=== PATIENT | male | born 1940 | race Caucasian/White ===

== ENCOUNTER → 2022-05-06 | Outpatient (CLI) | payer MEDICARE ==
[~2022-05-06] MED LIST: ALBU90OI6 INH; ASCO500 PO; CHOL10002 PO; CYAN1000 PO; MULVITMIND PO; TIOT18 INH
[2022-05-06 11:09] LABS: Appearance, Urine Clear (Clear); Bilirubin, Urine Neg (Neg); Blood, Urine 3+ (Neg); Color, Urine Yellow (P-Yellow); Glucose Qualitative, Urine Neg (Neg); Ketones, Urine Neg (Neg); Leukocyte Esterase, Urine Neg (Neg); Nitrite, Urine Neg (Neg); Protein, Urine 2+ (Neg); Specific Gravity, Urine 1.015 (1.003-1.022); Urobilinogen, Urine NORM (Normal)
[2022-05-06 11:50] LABS: Bacteria Few /hpf; Mucus Light (0-Heavy); Squamous Epithelial Cells Few /hpf (Few); White Blood Cells, Urine 0-2 /hpf (0-5)
== END | disposition home or self-care (01) ==
LOC: LAB SHORT 10:00 → LAB 10:00
PROVIDERS: Radiology Therapeutic Radiology
DX: C67.8 Malignant neoplasm of overlapping sites of bladder (principal)
CPT/HCPCS: 81001; 87077; 87086; 87186

== ENCOUNTER → 2022-05-09 | Outpatient (CLI) | payer MEDICARE ==
[2022-05-09 12:27] LABS: Hematocrit 31.7 % (37.0-53.0); Hemoglobin 10.4 g/dL (13.5-17.5); Mean Corpuscular HGB Conc 32.8 g/dL (31.5-36.5); Mean Corpuscular Volume 85 fL (80-100); Mean Platelet Volume 10.9 fL (9.1-12.4); RDW Coefficient Variation 16.3 % (11.7-14.2); RDW Standard Deviation 47.8 fL (35.1-46.3); Red Blood Cell Count 3.72 M/mm3 (4.30-5.90); White Blood Cell Count 6.09 K/mm3 (4.00-11.30)
[2022-05-09 12:46] LABS: Albumin, Blood 3.7 g/dL (3.4-5.0); Bilirubin, Total 0.4 mg/dL (0.1-1.0); Bun/Creatinine Ratio 11.3 (12.0-20.0); Calcium, Blood 8.9 mg/dL (8.5-10.1); Creatinine, Blood 0.97 mg/dL (0.60-1.20); Globulin, Blood 3.7 g/dL (2.2-4.0); Total Protein, Blood 7.4 g/dL (6.4-8.2)
[2022-05-09 14:00] LABS: Platelet Count 35 K/mm3 (150-400)
[2022-05-09 14:12] LABS: BAND PERCENT MAN 23 % (0-8); BASOPHILS PERCENT MAN 0 % (0-2); EOSINOPHILS PERCENT MAN 0 % (0-6); LYMPHOCYTES ABSOLUTE MAN 0.54 K/mm3 (0.84-5.20); LYMPHOCYTES PERCENT MAN 9 % (21-46); MONOCYTES ABSOLUTE MAN 0.12 K/mm3 (0.16-1.47); MONOCYTES PERCENT MAN 2 % (4-13); MYELOCYTE ABSOLUTE MAN 0.06 K/mm3 (0.00-0.00); MYELOCYTE PERCENT MAN 1 % (0-0); NEUTROPHILS ABSOLUTE MAN 5.35 K/mm3 (1.96-9.15); SEG NEUTROPHILS PERCENT MAN 65 % (41-73); TOTAL CELLS COUNTED 100
== END | disposition home or self-care (01) ==
LOC: LAB SHORT 12:22 → LAB 12:22
PROVIDERS: Physician Assistant
DX: C34.90 Malignant neoplasm of unspecified part of unspecified bronchus or lung (principal)
CPT/HCPCS: 80053; 84484; 85025

== ENCOUNTER → 2022-11-04 | Outpatient (CLI) | payer MEDICARE, OTHER ==
[2022-11-09 13:12] LABS: ATYPICAL PANCA <1:20 titer (Neg:<1:20); CYTOPLASMIC (C-ANCA) <1:20 titer (Neg:<1:20); PERINUCLEAR (P-ANCA) <1:20 titer (Neg:<1:20)
== END | disposition home or self-care (01) ==
LOC: LAB SHORT 15:15 → LAB 15:15
PROVIDERS: Family Medicine
DX: G62.9 Polyneuropathy, unspecified (principal); E53.8 Deficiency of other specified B group vitamins; R53.83 Other fatigue
CPT/HCPCS: 82607; 82746; 84155; 84443; 85651; 86037; 86038

== ENCOUNTER 2023-05-09 20:11 | Inpatient (IN) | payer MEDICARE, OTHER ==
[~2023-05-09] VITALS: Ht 182.9 cm; Wt 96.0 kg
[2023-05-09 21:40] LABS: BASOPHILS ABSOLUTE AUTO 0.05 K/mm3 (0.00-0.23); BASOPHILS PERCENT AUTO 1 % (0-2); EOSINOPHILS ABSOLUTE AUTO 0.31 K/mm3 (0.00-0.68); EOSINOPHILS PERCENT AUTO 5 % (0-6); Hematocrit 40.8 % (37.0-53.0); Hemoglobin 13.3 g/dL (13.5-17.5); IMMATURE GRAN ABSOLUTE AUTO 0.03 K/mm3 (0.00-0.10); IMMATURE GRAN PERCENT AUTO 0 % (0-1); LYMPHOCYTES ABSOLUTE AUTO 0.98 K/mm3 (0.84-5.20); LYMPHOCYTES PERCENT AUTO 14 % (21-46); MONOCYTES PERCENT AUTO 9 % (4-13); Mean Corpuscular HGB 27.1 pg (26.0-34.0); Mean Corpuscular HGB Conc 32.6 g/dL (31.5-36.5); Mean Corpuscular Volume 83 fL (80-100); Mean Platelet Volume 10.3 fL (9.1-12.4); NEUTROPHILS ABSOLUTE AUTO 4.86 K/mm3 (1.96-9.15); NEUTROPHILS PERCENT AUTO 71 % (41-73); Platelet Count 148 K/mm3 (150-400); RDW Coefficient Variation 13.5 % (11.7-14.2); RDW Standard Deviation 40.9 fL (35.1-46.3); White Blood Cell Count 6.83 K/mm3 (4.00-11.30)
[2023-05-09] MEDS ORDERED: FUROSEMIDE20 MG PO (22:03)
[2023-05-09] MEDS ORDERED: TAMSULOSIN HCL0.4 M1 PO (22:03)
[2023-05-09] MEDS ORDERED: LOSA50 PO (22:04)
[2023-05-09 22:57] LABS: Albumin, Blood 3.8 g/dL (3.4-5.0); Albumin/Globulin Ratio 0.9 (0.8-1.8); Bilirubin, Total 0.4 mg/dL (0.1-1.0); Bun/Creatinine Ratio 7.5 (12.0-20.0); Creatinine, Blood 1.06 mg/dL (0.60-1.20); Globulin, Blood 4.3 g/dL (2.2-4.0); Potassium, Blood 2.9 mmol/L (3.5-5.5); Total Protein, Blood 8.1 g/dL (6.4-8.2)
[2023-05-10 06:09] VITALS: BP 128/79
--- NOTE | 2023-05-10 06:33 | NUR ---
ADMIT NOTE 82 YR OLD MALE ADMITTED TO FLOOR FROM THE ED WITH DX OF HYPERCALCEMIA. ALERT AND ORIENTED X 4. O2 AT 2L/NC. DIABETIC. HX OF LUNG CANCER, ED RN REPORTED RECENT CHEMO AND RADIATION TREATMENTS. ORIENTED TO USE OF CALL LIGHT. CALL LIGHT IN REACH.
[2023-05-10 07:09] LABS: Bun/Creatinine Ratio 6.5 (12.0-20.0); Calcium, Blood 13.1 mg/dL (8.5-10.1); Creatinine, Blood 1.07 mg/dL (0.60-1.20); Potassium, Blood 3.1 mmol/L (3.5-5.5)
[2023-05-10] MEDS ORDERED: ALBU2.5V5 INH (13:05)
[2023-05-10] MEDS ORDERED: ROSU10TA PO (13:07)
[2023-05-10] MEDS ORDERED: KLOR-CON 1010 ME9 PO (13:08)
[2023-05-10] MEDS ORDERED: BRIMONIDINE TART5 M2 BOTHEYES (13:09)
[2023-05-10] MEDS ORDERED: METOPROLOL SUCC25 MG PO (13:10)
[2023-05-10 15:14] VITALS: BP 136/87
--- NOTE | 2023-05-10 16:46 | NUR ---
SHIFT SUMMARY- PT IS ALERT, PLESANT AND COOPERATIVE. HE SLEPT INTERMITENTLY THROUGHOUT THIS SHIFT. HE IS RECIEVING PRN NAUSEA MEDICATION. HE IS RECIEVING IV FLUIDS AND IS BEING TREATED TO ALTERED LABS. AT BEDSIDE THIS SHIFT. HIS BED IS IN THE LOW POSITON AND CALL LIGHT IS WITIN REACH.
[2023-05-10 19:44] VITALS: BP 128/75
[2023-05-11 02:08] VITALS: BP 137/75
--- NOTE | 2023-05-11 05:06 | NUR ---
END OF SHIFT SUMMARY PT A&O x4, PT LETHARGIC, BUT EASY TO AROUSE. VSS, AFEBRILE. PT DENIED CHEST PAIN/TIGHTNESS/PRESSURE, NO SOB. PT ON 1L VIA NC, OXYGEN SAT 92%. PT RECEIVED HIS LAST DOSE OF CALCITONIN IM INJECTION. CBG AC WAS 157. PT C/O NAUSEA, PRN IV ZOFRAN GIVEN AND EFFECTIVE. PT STOOD UP ONCE WITHOUT ASSISTANCE, BED ALARM ON FOR SAFETY PT CAN BE IMPULSIVE. FREQUENT SAFETY CHECKS COMPLETED. CALL LIGHT WITHIN REACH, WCTM.
[2023-05-11 06:55] LABS: BASOPHILS ABSOLUTE AUTO 0.04 K/mm3 (0.00-0.23); BASOPHILS PERCENT AUTO 1 % (0-2); EOSINOPHILS ABSOLUTE AUTO 0.05 K/mm3 (0.00-0.68); EOSINOPHILS PERCENT AUTO 1 % (0-6); Hematocrit 36.5 % (37.0-53.0); Hemoglobin 11.7 g/dL (13.5-17.5); IMMATURE GRAN ABSOLUTE AUTO 0.01 K/mm3 (0.00-0.10); IMMATURE GRAN PERCENT AUTO 0 % (0-1); LYMPHOCYTES ABSOLUTE AUTO 0.48 K/mm3 (0.84-5.20); LYMPHOCYTES PERCENT AUTO 10 % (21-46); MONOCYTES ABSOLUTE AUTO 0.34 K/mm3 (0.16-1.47); MONOCYTES PERCENT AUTO 7 % (4-13); Mean Corpuscular HGB 27.3 pg (26.0-34.0); Mean Corpuscular HGB Conc 32.1 g/dL (31.5-36.5); Mean Corpuscular Volume 85 fL (80-100); Mean Platelet Volume 10.8 fL (9.1-12.4); NEUTROPHILS ABSOLUTE AUTO 4.01 K/mm3 (1.96-9.15); NEUTROPHILS PERCENT AUTO 81 % (41-73); Platelet Count 130 K/mm3 (150-400); RDW Coefficient Variation 13.8 % (11.7-14.2); RDW Standard Deviation 43.1 fL (35.1-46.3); Red Blood Cell Count 4.28 M/mm3 (4.30-5.90); White Blood Cell Count 4.93 K/mm3 (4.00-11.30)
[2023-05-11 07:22] VITALS: BP 146/77
[2023-05-11 07:30] LABS: Calcium, Blood 11.6 mg/dL (8.5-10.1); Creatinine, Blood 0.84 mg/dL (0.60-1.20); Potassium, Blood 3.1 mmol/L (3.5-5.5)
[2023-05-11 07:54] LABS: BASOPHILS PERCENT MAN 0 % (0-2); EOSINOPHILS ABSOLUTE MAN 0.04 K/mm3 (0.00-0.68); EOSINOPHILS PERCENT MAN 1 % (0-6); LYMPHOCYTES ABSOLUTE MAN 0.09 K/mm3 (0.84-5.20); LYMPHOCYTES PERCENT MAN 2 % (21-46); MONOCYTES ABSOLUTE MAN 0.24 K/mm3 (0.16-1.47); MONOCYTES PERCENT MAN 5 % (4-13); NEUTROPHILS ABSOLUTE MAN 4.53 K/mm3 (1.96-9.15); SEG NEUTROPHILS PERCENT MAN 92 % (41-73); TOTAL CELLS COUNTED 100
[2023-05-11 15:31] VITALS: BP 135/73
--- NOTE | 2023-05-11 17:45 | NUR ---
SHIFT SUMMARY- PT IS A/O, PLESANT AND COOPERATIVE. HIS APPETITE IS POOR, TREATED FOR NAUSEA NEEDED. IS AT BEDSIDE. STILL BEING TREATED FOR ELECTROLYTE IMBALANCE. DR. VERDE SAW PT THIS EVENING AND CHANGED PAIN MECICATION TO ELIMINATE TYLENOL. HE WORKED WITH PT THIS SHIFT AND TOLORATED WELL. HE WAS UP TO THE CHAIR THIS SHIFT. HIS BED IS IN THE LOW POSITION AND CALL LIGHT IS WITIN REACH.
[2023-05-11 20:12] VITALS: BP 126/72
[2023-05-12 03:02] VITALS: BP 126/69
[2023-05-12 05:12] LABS: BASOPHILS ABSOLUTE AUTO 0.01 K/mm3 (0.00-0.23); BASOPHILS PERCENT AUTO 0 % (0-2); EOSINOPHILS PERCENT AUTO 0 % (0-6); Hematocrit 36.5 % (37.0-53.0); Hemoglobin 11.5 g/dL (13.5-17.5); IMMATURE GRAN ABSOLUTE AUTO 0.03 K/mm3 (0.00-0.10); IMMATURE GRAN PERCENT AUTO 1 % (0-1); LYMPHOCYTES PERCENT AUTO 7 % (21-46); MONOCYTES ABSOLUTE AUTO 0.05 K/mm3 (0.16-1.47); MONOCYTES PERCENT AUTO 1 % (4-13); Mean Corpuscular HGB 26.9 pg (26.0-34.0); Mean Corpuscular HGB Conc 31.5 g/dL (31.5-36.5); Mean Corpuscular Volume 86 fL (80-100); NEUTROPHILS ABSOLUTE AUTO 5.68 K/mm3 (1.96-9.15); NEUTROPHILS PERCENT AUTO 92 % (41-73); Platelet Count 136 K/mm3 (150-400); RDW Coefficient Variation 14.2 % (11.7-14.2); RDW Standard Deviation 43.9 fL (35.1-46.3); Red Blood Cell Count 4.27 M/mm3 (4.30-5.90); White Blood Cell Count 6.17 K/mm3 (4.00-11.30)
[2023-05-12 05:35] LABS: Albumin, Blood 3.1 g/dL (3.4-5.0); Albumin/Globulin Ratio 0.8 (0.8-1.8); Bilirubin, Total 0.4 mg/dL (0.1-1.0); Bun/Creatinine Ratio 11.1 (12.0-20.0); Calcium, Blood 11.4 mg/dL (8.5-10.1); Creatinine, Blood 0.99 mg/dL (0.60-1.20); Globulin, Blood 3.9 g/dL (2.2-4.0); Magnesium, Blood 1.8 mg/dL (1.6-2.4); Potassium, Blood 3.6 mmol/L (3.5-5.5)
[2023-05-12 06:33] LABS: BASOPHILS PERCENT MAN 0 % (0-2); EOSINOPHILS PERCENT MAN 0 % (0-6); LYMPHOCYTES ABSOLUTE MAN 0.24 K/mm3 (0.84-5.20); LYMPHOCYTES PERCENT MAN 4 % (21-46); MONOCYTES PERCENT MAN 0 % (4-13); NEUTROPHILS ABSOLUTE MAN 5.92 K/mm3 (1.96-9.15); SEG NEUTROPHILS PERCENT MAN 96 % (41-73); TOTAL CELLS COUNTED 100
[2023-05-12 07:45] VITALS: BP 116/60
[2023-05-12 14:53] VITALS: BP 134/74
--- NOTE | 2023-05-12 18:18 | NUR ---
SHIFT SUMMARY: PATIENT A/OX4. APPEARS TO BE WITHDRAWN AND HAS FLAT AFFECT. PATIENT DENIES CP/PRESSURE, N/V, SOB, GENERALIZED PAIN AND DIZZINESS. 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 PT RECOMMENDED HH SERVICES. PATIENT ATE 50% FOR BREAKFAST, DECLINE LUNCH AND ATE COUPLE BITES FOR DINNER. PATIENT IS CONTINENCE OF BLADDER AND USES URINAL IN BED INDEPENDENTLY. PATIENT RECEIVED IV ABX AND SCHEDULED MEDS PER EMAR. ON 2L O2 AT BASELINE. LUNGS COARSE AND WHEEZY T/O TO AUSCULTATION. VITAL SIGNS REVIEWED. PIV TO L WRIST INFUSING NS AT 50 MLS/HR. BED ALARM ON FOR SAFETY. CALL LIGHT IN REACH.
--- NOTE | 2023-05-12 18:33 | NUR ---
ADDITIONAL NOTE: PATIENT ON TELE, SR HR IN THE 60'S BPM c OCCASIONAL BBB PER COMMERCIAL HVAC TECHNICIAN.
[2023-05-12 19:49] VITALS: BP 111/95
[2023-05-12 21:03] VITALS: BP 119/57
[2023-05-13 01:51] VITALS: BP 127/72
--- NOTE | 2023-05-13 04:46 | NUR ---
SHIFT SUMMARY PT A&O, CALM AND COOPERATIVE WITH CARE. PT APPETITE IS POOR, MEDICATED PER EMAR FOR NAUSEA. ABX AND SOLUMEDROL GIVEN INDICATED. PT CONTINENT OF URINE AND USES URINAL WITH ASSISTANCE. 2 L O2 VIA NC. TELEMETRY: SR 1ST DEGREE @ 55. DENIES CP OR PRESSURE. BED KEPT IN THE LOWEST POSITION FOR PT SAFETY. CALL LIGHT WITHIN REACH.
[2023-05-13 05:55] LABS: BASOPHILS ABSOLUTE AUTO 0.01 K/mm3 (0.00-0.23); BASOPHILS PERCENT AUTO 0 % (0-2); EOSINOPHILS PERCENT AUTO 0 % (0-6); Hematocrit 34.9 % (37.0-53.0); Hemoglobin 11.3 g/dL (13.5-17.5); IMMATURE GRAN ABSOLUTE AUTO 0.04 K/mm3 (0.00-0.10); IMMATURE GRAN PERCENT AUTO 0 % (0-1); LYMPHOCYTES ABSOLUTE AUTO 0.51 K/mm3 (0.84-5.20); LYMPHOCYTES PERCENT AUTO 4 % (21-46); MONOCYTES ABSOLUTE AUTO 0.27 K/mm3 (0.16-1.47); MONOCYTES PERCENT AUTO 2 % (4-13); Mean Corpuscular HGB Conc 32.4 g/dL (31.5-36.5); Mean Corpuscular Volume 83 fL (80-100); Mean Platelet Volume 10.3 fL (9.1-12.4); NEUTROPHILS ABSOLUTE AUTO 11.48 K/mm3 (1.96-9.15); NEUTROPHILS PERCENT AUTO 93 % (41-73); Platelet Count 151 K/mm3 (150-400); RDW Coefficient Variation 14.3 % (11.7-14.2); RDW Standard Deviation 43.3 fL (35.1-46.3); Red Blood Cell Count 4.19 M/mm3 (4.30-5.90); White Blood Cell Count 12.31 K/mm3 (4.00-11.30)
[2023-05-13 06:33] LABS: Albumin, Blood 3.1 g/dL (3.4-5.0); Albumin/Globulin Ratio 0.9 (0.8-1.8); Bilirubin, Total 0.4 mg/dL (0.1-1.0); Bun/Creatinine Ratio 19.5 (12.0-20.0); Calcium, Blood 11.3 mg/dL (8.5-10.1); Creatinine, Blood 0.98 mg/dL (0.60-1.20); Globulin, Blood 3.6 g/dL (2.2-4.0); Potassium, Blood 3.4 mmol/L (3.5-5.5); Total Protein, Blood 6.7 g/dL (6.4-8.2)
[2023-05-13 08:03] VITALS: BP 123/79
[2023-05-13 16:03] VITALS: BP 132/67
--- NOTE | 2023-05-13 18:18 | NUR ---
SHIFT SUMMARY PT AOX4, SBA TO THE BR. FAMILY AT THE BS ALL SHIFT. MEDICATED FOR PAIN PER THE EMAR. PT'S APPETITE IMPROVING, EATING BETTER TODAY. PT ON TELE, SB DURING HIS SLEEP BUT RECOVERED WELL. STILL ON 2L BUT WEARS IT IN HIS MOUTH. CALL LIGHT WITHIN REACH, BED IN THE LOWEST POSITION. WILL REPORT TO ONCOMING NURSE.
--- NOTE | 2023-05-13 19:08 | NUR ---
Late entry note did not post from 05/11. Long discussion with pt and family. Symptom review getting more headaches. Struggling with food. Reviewed strategies of eating more frquently and strategies of hydration. Pt lives in a trailer home alone most of the week his goes to [place] to work. pt until recently was driving. he has fallen getting out of the camper. serious conversation with them about changing his living situation and not driving. Saw today and review his care . She had to go but feels he is better. Briefly discussed code status and adnvace care planning and poa and arriola.
[2023-05-13 19:11] VITALS: BP 122/73
--- NOTE | 2023-05-14 02:57 | NUR ---
SHIFT SUMMARY PT A&O X4, PLEASANT AND COOPERATIVE WITH CARE. PT IS SBA WITH FFW TO BATHROOM. CURRENTLY ON 2L O2 VIA NC. PT PREFERS TO WEAR IN HIS MOUTH. TELEMETRY: SB W/FIRST DEGREE. ASYMPTOMATIC, DENIES ANY CP/ PRESSURE OR DIZZINESS. NS INFUISING AT 75 ML/HR. AT BEDSIDE AT START OF SHIFT AND STATES PATIENTS APPETITE IS IMPROVING. PT MEDICATED PER EMAR FOR COMPLAINTS OF ABDOMINAL PAIN. BED KEPT IN LOWEST POSITION WITH CALL LIGHT WITHIN REACH. WILL CONTINUE TO MONITOR UNTIL END OF SHIFT.
[2023-05-14 03:08] VITALS: BP 157/78
[2023-05-14 04:31] VITALS: BP 133/75
[2023-05-14 06:24] LABS: BASOPHILS PERCENT AUTO 0 % (0-2); EOSINOPHILS PERCENT AUTO 0 % (0-6); Hematocrit 35.6 % (37.0-53.0); Hemoglobin 11.6 g/dL (13.5-17.5); IMMATURE GRAN ABSOLUTE AUTO 0.07 K/mm3 (0.00-0.10); IMMATURE GRAN PERCENT AUTO 1 % (0-1); LYMPHOCYTES PERCENT AUTO 5 % (21-46); MONOCYTES ABSOLUTE AUTO 0.54 K/mm3 (0.16-1.47); MONOCYTES PERCENT AUTO 5 % (4-13); Mean Corpuscular HGB 27.1 pg (26.0-34.0); Mean Corpuscular HGB Conc 32.6 g/dL (31.5-36.5); Mean Corpuscular Volume 83 fL (80-100); Mean Platelet Volume 10.5 fL (9.1-12.4); NEUTROPHILS ABSOLUTE AUTO 9.97 K/mm3 (1.96-9.15); NEUTROPHILS PERCENT AUTO 89 % (41-73); Platelet Count 160 K/mm3 (150-400); RDW Coefficient Variation 14.5 % (11.7-14.2); RDW Standard Deviation 43.3 fL (35.1-46.3); Red Blood Cell Count 4.28 M/mm3 (4.30-5.90); White Blood Cell Count 11.18 K/mm3 (4.00-11.30)
[2023-05-14 06:43] LABS: Bun/Creatinine Ratio 18.5 (12.0-20.0); Calcium, Blood 10.8 mg/dL (8.5-10.1); Creatinine, Blood 0.92 mg/dL (0.60-1.20); Potassium, Blood 3.2 mmol/L (3.5-5.5)
[2023-05-14 07:39] VITALS: BP 143/60
[2023-05-14 16:49] VITALS: BP 130/82
--- NOTE | 2023-05-14 18:00 | NUR ---
SHIFT SUMMARY PT AOX4, 1 ASSIST WITH THE FWW. THE PT WAS IN PAIN THIS AM, USED THE URINAL AT THE BS. HE WAS MEDICATED FOR PAIN PER THE EMAR. HE TOOK A SHOWER TODAY AND TOLERATED IT WELL. IS AT THE BS THIS EVENING. TELE CALLED AND SAID HE WAS TACHY UP EARLY THIS AFTERNOON BUT HAVE NOT HAD ISSUES SINCE. CALL LIGHT WITHIN REACH, BED IN THE LOWEST POSITION. WILL REPORT TO ONCOMING NURSE.
[2023-05-14 19:20] VITALS: BP 112/55
[2023-05-15 03:21] VITALS: BP 142/72
--- NOTE | 2023-05-15 03:54 | NUR ---
SHIFT SUMMARY PT A&O X4, CALM AND COOPERATIVE WITH CARE. COMPLAINTS OF ABD/EPIGASTRIC PAIN THIS SHIFT-MEDICATED PER EMAR. TELEMETRY: SR/SA @69. DENIES ANY CP OR PRESSURE. PT CURRENTLY ON 2L O2 VIA NC WHICH IS HIS BASELINE. GIVEN MIRALAX THIS SHIFT. AT BEDSIDE WELL INTO THE NIGHT. BED IN LOWEST POSITION WITH CALL LIGHT WITHIN REACH. WILL CONTINUE TO MONITOR.
[2023-05-15 05:43] LABS: BASOPHILS ABSOLUTE AUTO 0.01 K/mm3 (0.00-0.23); BASOPHILS PERCENT AUTO 0 % (0-2); EOSINOPHILS ABSOLUTE AUTO 0.03 K/mm3 (0.00-0.68); EOSINOPHILS PERCENT AUTO 0 % (0-6); Hematocrit 34.1 % (37.0-53.0); Hemoglobin 11.2 g/dL (13.5-17.5); IMMATURE GRAN ABSOLUTE AUTO 0.04 K/mm3 (0.00-0.10); IMMATURE GRAN PERCENT AUTO 1 % (0-1); LYMPHOCYTES ABSOLUTE AUTO 0.62 K/mm3 (0.84-5.20); LYMPHOCYTES PERCENT AUTO 8 % (21-46); MONOCYTES ABSOLUTE AUTO 0.47 K/mm3 (0.16-1.47); MONOCYTES PERCENT AUTO 6 % (4-13); Mean Corpuscular HGB 27.2 pg (26.0-34.0); Mean Corpuscular HGB Conc 32.8 g/dL (31.5-36.5); Mean Corpuscular Volume 83 fL (80-100); NEUTROPHILS ABSOLUTE AUTO 6.69 K/mm3 (1.96-9.15); NEUTROPHILS PERCENT AUTO 85 % (41-73); Platelet Count 139 K/mm3 (150-400); RDW Coefficient Variation 14.4 % (11.7-14.2); RDW Standard Deviation 43.4 fL (35.1-46.3); Red Blood Cell Count 4.12 M/mm3 (4.30-5.90); White Blood Cell Count 7.86 K/mm3 (4.00-11.30)
[2023-05-15 06:39] LABS: Albumin, Blood 2.8 g/dL (3.4-5.0); Anion Gap 4 mmol/L (6-16); Blood Urea Nitrogen 12 mg/dL (8-24); Bun/Creatinine Ratio 14.1 (12.0-20.0); CO2, Blood 28 mmol/L (21-32); Calcium, Blood 10.4 mg/dL (8.5-10.1); Chloride, Blood 108 mmol/L (98-108); Creatinine, Blood 0.85 mg/dL (0.60-1.20); Glomerular Filtration Rate 87 (60-); Glucose, Blood 135 mg/dL (70-99); Phosphorus, Blood 0.8 mg/dL (2.5-4.9); Potassium, Blood 2.9 mmol/L (3.5-5.5); Sodium, Blood 140 mmol/L (136-145)
[2023-05-15 08:03] VITALS: BP 138/70
[2023-05-15 14:39] LABS: Albumin, Blood 2.6 g/dL (3.4-5.0); Anion Gap 4 mmol/L (6-16); Blood Urea Nitrogen 11 mg/dL (8-24); CO2, Blood 29 mmol/L (21-32); Calcium, Blood 9.8 mg/dL (8.5-10.1); Chloride, Blood 105 mmol/L (98-108); Glomerular Filtration Rate 75 (60-); Glucose, Blood 234 mg/dL (70-99); Phosphorus, Blood 2.2 mg/dL (2.5-4.9); Potassium, Blood 3.6 mmol/L (3.5-5.5); Sodium, Blood 138 mmol/L (136-145)
--- NOTE | 2023-05-15 17:49 | NUR ---
SHIFT SUMMARY Pt A&O this shift. Increased weakness noted. Ast needed from bed to standing to urinate. VSS. RLQ abd/back pain managed with IV Toradol and po [place]. SR on monitor. Will upper thigh edema noted. IVF decreased per Dr. Hall. Pain and safety maintained. Will continue to monitor.
[2023-05-15 18:01] VITALS: BP 143/68
[2023-05-15 19:16] VITALS: BP 116/64
[2023-05-16 03:56] VITALS: BP 148/73
--- NOTE | 2023-05-16 05:31 | NUR ---
SHIFT SUMMARY 82 YR M ADMITTED ON 05/10/23 FOR HYPERCALCEMIA. FULL CODE. NO ACUTE CHANGES THIS SHIFT. PT IS STILL HAVING A GREAT DEAL OF PAIN AND BEING GIVEN PAIN MEDS PER EMAR. HE IS A SBA TO STAND AT BEDSIDE AND USE THE URINAL. HE URINATES FREQUENTLY BUT SMALL AMOUNTS AT A TIME (150-250). HE IS A&O X4 AND IS PLEASANT AND COOPERATIVE WITH CARE. HE SLEPT OFF AND ON THROUGHOUT THE NIGHT.
[2023-05-16 05:37] LABS: BASOPHILS ABSOLUTE AUTO 0.02 K/mm3 (0.00-0.23); BASOPHILS PERCENT AUTO 0 % (0-2); EOSINOPHILS ABSOLUTE AUTO 0.15 K/mm3 (0.00-0.68); EOSINOPHILS PERCENT AUTO 2 % (0-6); Hemoglobin 10.9 g/dL (13.5-17.5); IMMATURE GRAN ABSOLUTE AUTO 0.03 K/mm3 (0.00-0.10); IMMATURE GRAN PERCENT AUTO 0 % (0-1); LYMPHOCYTES PERCENT AUTO 10 % (21-46); MONOCYTES ABSOLUTE AUTO 0.43 K/mm3 (0.16-1.47); MONOCYTES PERCENT AUTO 6 % (4-13); Mean Corpuscular HGB 27.3 pg (26.0-34.0); Mean Corpuscular Volume 83 fL (80-100); Mean Platelet Volume 9.8 fL (9.1-12.4); NEUTROPHILS ABSOLUTE AUTO 5.62 K/mm3 (1.96-9.15); NEUTROPHILS PERCENT AUTO 81 % (41-73); Platelet Count 133 K/mm3 (150-400); RDW Coefficient Variation 14.5 % (11.7-14.2); RDW Standard Deviation 43.4 fL (35.1-46.3); White Blood Cell Count 6.95 K/mm3 (4.00-11.30)
[2023-05-16 06:11] LABS: Albumin, Blood 2.6 g/dL (3.4-5.0); Anion Gap 5 mmol/L (6-16); Blood Urea Nitrogen 8 mg/dL (8-24); Bun/Creatinine Ratio 8.8 (12.0-20.0); CO2, Blood 26 mmol/L (21-32); Calcium, Blood 9.8 mg/dL (8.5-10.1); Chloride, Blood 105 mmol/L (98-108); Creatinine, Blood 0.91 mg/dL (0.60-1.20); Glomerular Filtration Rate 84 (60-); Glucose, Blood 183 mg/dL (70-99); Phosphorus, Blood 1.4 mg/dL (2.5-4.9); Potassium, Blood 3.3 mmol/L (3.5-5.5); Sodium, Blood 136 mmol/L (136-145); Uric Acid, Blood 2.5 mg/dL (3.5-7.2)
[2023-05-16 06:22] LABS: Cortisol, AM 13.7 ug/dL (6.7-22.6)
[2023-05-16 07:17] VITALS: BP 125/59
[2023-05-16 16:37] VITALS: BP 109/60
[2023-05-16 19:24] VITALS: BP 127/74
--- NOTE | 2023-05-16 19:51 | NUR ---
SHIFT SUMMARY: THOMAS IS A&OX4. VSS, NO ACUTE EVENTS THIS SHIFT. HE IS MAINTAINING SATS ON 2L VIA NC WHICH HE PREFERS TO UTILIZE THROUGH HIS MOUTH INSTEAD OF HIS NOSE. HE IS USING THE URINAL WITH STANDBY ASSIST AND IS A ONE-PERSON ASSIST TO THE BEDSIDE CHAIR WITH FWW AND GAIT BELT. HE IS TOLERATING PO INTAKE WELL, USES THE CALL LIGHT APPROPRIATELY, AND IV TO R WRIST IS PATENT. HE IS LYING IN BED WITH THE CALL LIGHT IN REACH. REPORT WAS GIVEN TO PUBLIC HEALTH MICROBIOLOGIST RN.
--- NOTE | 2023-05-16 23:08 | NUR ---
[employer] SOFTWARE ENGINEER SUMMARY VSS. ALERT AND ORIENTED. STAND BY ASSIST. CONTINENT WITH URINAL.O2 AT 2L/NC - BUT KEEPS NC IN HIS MOUTH HE IS A MOUTH BREATHER. HOB ELEVATED. IV NS INFUSING AT 50 ML/HR. RESTING QUIETLY WITH OCCASIONAL INTERRUPTIONS. CALL LIGHT IN REACH. [employer] 360 SINUS RHYTHM AT 70. WILL CONTINUE TO MONITOR
[2023-05-17 04:15] VITALS: BP 127/69
[2023-05-17 05:46] LABS: BASOPHILS ABSOLUTE AUTO 0.01 K/mm3 (0.00-0.23); BASOPHILS PERCENT AUTO 0 % (0-2); EOSINOPHILS PERCENT AUTO 6 % (0-6); Hemoglobin 10.4 g/dL (13.5-17.5); IMMATURE GRAN ABSOLUTE AUTO 0.02 K/mm3 (0.00-0.10); IMMATURE GRAN PERCENT AUTO 0 % (0-1); LYMPHOCYTES PERCENT AUTO 12 % (21-46); MONOCYTES PERCENT AUTO 6 % (4-13); Mean Corpuscular HGB Conc 32.5 g/dL (31.5-36.5); Mean Corpuscular Volume 83 fL (80-100); NEUTROPHILS ABSOLUTE AUTO 3.84 K/mm3 (1.96-9.15); NEUTROPHILS PERCENT AUTO 76 % (41-73); Platelet Count 129 K/mm3 (150-400); RDW Coefficient Variation 14.6 % (11.7-14.2); RDW Standard Deviation 43.6 fL (35.1-46.3); Red Blood Cell Count 3.85 M/mm3 (4.30-5.90); White Blood Cell Count 5.07 K/mm3 (4.00-11.30)
[2023-05-17 06:32] LABS: Albumin, Blood 2.5 g/dL (3.4-5.0); Anion Gap 3 mmol/L (6-16); Blood Urea Nitrogen 7 mg/dL (8-24); Bun/Creatinine Ratio 8.7 (12.0-20.0); CO2, Blood 26 mmol/L (21-32); Calcium, Blood 9.8 mg/dL (8.5-10.1); Chloride, Blood 110 mmol/L (98-108); Creatinine, Blood 0.81 mg/dL (0.60-1.20); Glomerular Filtration Rate 88 (60-); Glucose, Blood 175 mg/dL (70-99); Magnesium, Blood 2.3 mg/dL (1.6-2.4); Phosphorus, Blood 1.9 mg/dL (2.5-4.9); Potassium, Blood 3.6 mmol/L (3.5-5.5); Sodium, Blood 139 mmol/L (136-145)
[2023-05-17 07:19] VITALS: BP 115/57
[2023-05-17] MEDS ORDERED: MIRALAX17 GM PO (12:03)
[2023-05-17] MEDS ORDERED: POTASSIUM PHOSPH1 GM PO (12:04)
--- NOTE | 2023-05-17 15:15 | NUR ---
Patient alert & oriented x4, pleasant & cooperative with cares. Utilization Review Nurse assessed patient at bedside this AM. Medically stable for discharge. Home O2 eval done, no O2 needed, sats stable on RA. Reviewed discharge education, patient verbalized understanding. Removed IV. Patient left unit at 1430.
== END 2023-05-17 14:23 | disposition home or self-care (01) | DRG 640 ==
LOC: ER 20:11 → MEDS 05-10 00:34 → ERHOLD 05-10 00:34 → MEDS 05-10 05:55 → ENPENDDIS 05-17 10:42 → MEDS 05-17 14:23
PROVIDERS: Family Medicine; Hospitalist; Internal Medicine Nephrology; Student in an Organized Health Care Education/Training Program; ADMIT Internal Medicine
DX: E83.52 Hypercalcemia (principal); J18.9 Pneumonia, unspecified organism; J96.21 Acute and chronic respiratory failure with hypoxia; J44.0 Chronic obstructive pulmonary disease with (acute) lower respiratory infection; J44.1 Chronic obstructive pulmonary disease with (acute) exacerbation; J98.11 Atelectasis; N17.9 Acute kidney failure, unspecified; C78.7 Secondary malignant neoplasm of liver and intrahepatic bile duct; E87.6 Hypokalemia; I12.9 Hypertensive chronic kidney disease with stage 1 through stage 4 chronic kidney disease, or unspecified chronic kidney disease; N18.9 Chronic kidney disease, unspecified; E86.9 Volume depletion, unspecified; E88.09 Other disorders of plasma-protein metabolism, not elsewhere classified; D64.9 Anemia, unspecified; C67.9 Malignant neoplasm of bladder, unspecified; I71.40 Abdominal aortic aneurysm, without rupture, unspecified; N40.0 Benign prostatic hyperplasia without lower urinary tract symptoms; D69.6 Thrombocytopenia, unspecified; E83.39 Other disorders of phosphorus metabolism; E87.70 Fluid overload, unspecified; R60.0 Localized edema; Z87.891 Personal history of nicotine dependence; Z85.118 Personal history of other malignant neoplasm of bronchus and lung
CPT/HCPCS: 36415; 71045; 80048; 80053; 80069; 82164; 82330; 82397; 82533; 82550; 82652; 82947; 83735; 83970; 84443; 84550; 85025; 93005; 93010; 94640; 94664; 94760; 94761; 96365; 96372; 96375; 96376; 97110; 97110-CQ; 97116; 97116-CQ; 97162; 97165; 97530; 97535; 99284-25; A9270; J0630; J1650; J1885; J1940; J2405; J2543; J2930; J3010; J3475; J3480; J3489; J7030; J7040; J7060; Q0167